=== PATIENT | female | born 1975 | race Caucasian/White ===

== ENCOUNTER 2018-08-20 08:07 | Day surgery (SDC) | payer OTHER ==
[~2018-08-20] VITALS: Ht 154.9 cm; Wt 57.1 kg
[~2018-08-20 08:07] MED LIST: ASPIR-LOW81 MG PO; FISH OIL 500 M1 EAC1 PO; NICOTINE1 EAC1 TD; NORG-EE 0.18-01 EACH PO; VITAMIN B COMP1 EAC1 PO; VITAMIN C1000 MG PO; VITAMIN D32000 UNI1 PO; WOMEN'S DAILY1 EACH PO
--- NOTE | 2018-08-20 11:54 | NUR ---
08/20/18 1154 Sheets,Leanne 1141 PT ARRIVED TO PACU ON RA, PT REACTIV ETO TACTILE STIMULI. PT STATING TO THRASH AROUND IN BED. PT REORIENTED TO PACU. PT DENIES PAIN AND IS MAONING. RESP EVEN AND UNLABORED, PT COUGHING OFF AND ON. 1150 PT RESTING IN BED, PT MORE AWAKE AND ABLE TO TALK WITH RN, PT CONINTUES TO DENY PAIN AND NAUSEA. PT RESTING IN BED, RELAXED. PT REPORT PAIN IN THRAOT, PT EDUCATION GIVEN ON INTUBATION.
--- NOTE | 2018-08-20 12:21 | NUR ---
ICED WATER AND JELLO GIVEN. CALL LIGHT W/IN REACH. FAMILY PAGED. PATIENT WILL ANSWER QUESTIONS AND FALLS QUICKLY BACK TO SLEEP WHEN LEFT UNSTIMULATED.
[2018-08-20] MEDS ORDERED: ULTRAM50 MG PO (13:20)
[2018-08-20] MEDS ORDERED: NORCO 5-325 TA1 EACH PO (13:20)
--- NOTE | 2018-08-20 14:04 | NUR ---
1320: PATIENT TOLERATED JELLO. GIVEN JAMIN CRACKERS TO EAT. GIVEN ONE TABLET OF TRAMADOL PER PATIENT REQUEST BECAUSE SHE COULD FEEL RIGHT SHOULDER STARTING TO WAKE UP. VS CHECKED. FAMILY AT BEDSIDE. CALL LIGHT WITHIN REACH.
--- NOTE | 2018-08-20 14:12 | NUR ---
1345: PATIENT TOLERATED CRACKERS. IV DC'D WNL. DISCHARGE INSTRUCTIONS GIVEN TO PATIENT. PATIENT ASSISTED OOB AND TO GET DRESSED. RIGHT ARM IN SLING. PATIENT DISCHARGED TO HOME WITH BOYFRIEND LUCIANA VIA WHEELCHAIR.
--- NOTE | 2018-08-21 14:35 | OR ---
[facility] [address] [place], [place] [address] Signed DATE OF OPERATION: 08/20/2018 SURGEON: Yobany Vela MD PREOPERATIVE DIAGNOSIS: Rotator cuff tear, right shoulder. POSTOPERATIVE DIAGNOSIS: Rotator cuff tear, right shoulder. PROCEDURE PERFORMED: Shoulder arthroscopy with debridement of partial-thickness rotator cuff tear and subacromial bursectomy. ANESTHESIA: General. SPECIMENS AND COMPLICATIONS: There were no specimens or complications. WHAT WAS DONE: The patient was taken the operating room. After anesthesia was induced and the airway secured, the patient was placed in a modified beach chair position, prepped and draped in a routine sterile fashion. The bony topography was outlined with a skin marking pen and the arthroscope was inserted through the standard posterior portal. An anterior portal was created using a switching stick technique. Diagnostic arthroscopy revealed an unremarkable glenoid and unremarkable labrum and unremarkable humeral head. The biceps and biceps anchor were unremarkable as was the subscapularis. There was a partial thickness articular sided rotator cuff tear. The VAPR electrosurgical device was introduced and used to debride the tear. After the entire tear had been debrided, there was no full-thickness component identified. We then moved the scope into the subacromial space, where there was a moderately dense bursitis. An auxiliary lateral portal was created and the VAPR was used to perform a subacromial bursectomy. Again, there was no impingement from the the AC joint. Careful inspection of the bursal side of the rotator cuff did not reveal any tearing. The subacromial space was drained and the portals were closed. Sterile dressings were applied. The patient was placed in a sling awakened, taken to the recovery room where she arrived in stable condition. Counts were correct and antibiotic protocols were followed. Electronically Signed By: YOBANY VELA MD 08/21/18 1435 PATIENT NAME: MEGHNA JIMENEZ Nusrat OPERATIVE REPORT DATE OF : 71 REPORT #: [id number] PHYSICIAN: YOBANY VELA MD PCP: JULIANA BINGHAM REPORT IS CONFIDENTIAL AND NOT TO BE RELEASED WITHOUT AUTHORIZATION [address], [place] [address] Signed Yobany Vela MD WFB/MODL /[id number] Copies: ~ Electronically Signed By: YOBANY VELA MD 08/21/18 1435 PATIENT NAME: BARBARAMEGHNA OPERATIVE REPORT DATE OF : 71 REPORT #: [id number] PHYSICIAN: YOBANY VELA MD PCP: JULIANA BINGHAM REPORT IS CONFIDENTIAL AND NOT TO BE RELEASED WITHOUT AUTHORIZATION
== END 2018-08-20 13:45 | disposition home or self-care (01) ==
LOC: OPS 08:07 → DS 08:07 → OPS 08:30 → DS 08:30 → OPS 10:30
PROVIDERS: Orthopaedic Surgery
PROC: 0RBJ4ZZ Excision of Right Shoulder Joint, Percutaneous Endoscopic Approach (ICD-10-PCS; principal; 2018-08-20 10:30)
DX: S46.011A Strain of muscle(s) and tendon(s) of the rotator cuff of right shoulder, initial encounter (principal); I48.91 Unspecified atrial fibrillation; Z88.2 Allergy status to sulfonamides; Z88.8 Allergy status to other drugs, medicaments and biological substances; Z79.82 Long term (current) use of aspirin; Z79.899 Other long term (current) drug therapy; X50.9XXA Other and unspecified overexertion or strenuous movements or postures, initial encounter; Y99.0 Civilian activity done for income or pay
CPT/HCPCS: 01630; 64415; 76942; J0690; J0735; J1885; J2250; J2405; J2704; J2795; J7120

== ENCOUNTER 2020-12-21 07:35 | Day surgery (SDC) | payer OTHER ==
[~2020-12-21] VITALS: Ht 154.9 cm; Wt 50.0 kg
[~2020-12-21 07:35] MED LIST changes: +NORCO 5-325 TA1 EACH PO; +ULTRAM50 MG PO
--- NOTE | 2020-12-21 12:23 | NUR ---
12/21/20 1223 Doris Montague 1219-PATIENT ARRIVED TO PACU ON 10L MASK RR EVEN. NONAROUSABLE. SR. IVF INFUSING. NO DRAINAGE TO TEA AREA.
--- NOTE | 2020-12-21 13:02 | NUR ---
1255: PATIENT BACK IN DAY SURGERY ROOM FROM PACU. RATES PAIN 3/10 IN LOWER ABDOMEN. VS CHECKED. IV SITE WNL. NO VAGINAL DRAINAGE. SCDs ON. PATIENT GIVEN ICE WATER AND JELLO. CALL LIGHT WITHIN REACH.
[2020-12-21] MEDS ORDERED: IBUPROFEN800 MG PO (13:13)
--- NOTE | 2020-12-21 13:57 | NUR ---
1340: PATIENT ASSISTED OOB AND TO BATHROOM BY RN. VOID WITHOUT DIFFICULTY. SMALL AMOUNT OF RED VAGINAL DRAINAGE. GAIT STEADY. 1350: PATIENT DRESSED INDEPENDENTLY. DISCHARGE INSTRUCTIONS GIVEN. IV DC'D WNL. TIP INTACT. DRESSING APPLIED. PATIENT DISCHARGED TO HOME WITH FRIEND VIA WHEELCHAIR.
--- NOTE | 2020-12-22 12:43 | PATH ---
[facility] [address] [place], [place] [address] Signed SPECIMEN(S): A ENDOMETRIAL CURETTINGS SPECIMEN SOURCE: A. ENDOMETRIAL CURETTINGS CLINICAL HISTORY: Abnormal uterine bleeding. Hysteroscopy DC. FINAL PATHOLOGIC DIAGNOSIS: Endometrium, curettage: - Disordered proliferative endometrium. - Fragments with features of benign endometrial polyp(s). - Fragments of myometrium with no histopathologic abnormality. - Negative for atypical hyperplasia or malignancy. NAL:cml:C2NR MICROSCOPIC EXAMINATION: Histologic sections of all submitted blocks are examined by light microscopy. These findings, together with the gross examination, support the pathologic diagnosis. GROSS DESCRIPTION: The specimen, labeled "LB," and designated on the requisition "EMC," is received in formalin and consists of multiple fragments of pink-peterson to hemorrhagic soft tissue (2.3 x 2.3 x 0.5 cm in aggregate). The specimen is submitted entirely in cassette (A1). AC (under the direct supervision of a pathologist) The Gross Description was prepared using a voice recognition system. The report was reviewed for accuracy; however, sound-alike word errors, addition and/or deletions may occur. If there is any question about this report, please contact Client Services. PERFORMING LABORATORY: The technical component was performed by [employer], [address] [place] [address] ([employer]: Lydia Lopez MD; CLIA# [id number]). [facility], [address] [address] (CLIA# [id number]). Diagnostician: Shea Renteria MD Pathologist PATIENT NAME: MEGHNA SAMUEL PATHOLOGY DATE OF : 71 REPORT #: [id number] PHYSICIAN: ANURAG PATHOLOGY PCP: JULIANA BINGHAM REPORT IS CONFIDENTIAL AND NOT TO BE RELEASED WITHOUT AUTHORIZATION [address] [address] Signed Electronically Signed 12/22/2020 Copies: ~ PATIENT NAME: MEGHNA SAMUEL PATHOLOGY DATE OF : 71 REPORT #: [id number] PHYSICIAN: ANURAG PATHOLOGY PCP: JULIANA BINGHAM REPORT IS CONFIDENTIAL AND NOT TO BE RELEASED WITHOUT AUTHORIZATION
--- NOTE | 2020-12-24 16:21 | OR ---
[facility] [address] [place], [place] [address] Signed DATE OF OPERATION: 12/21/2020 SURGEON: Néstor Call DO PROCEDURE: Hysteroscopy D and C. PREOPERATIVE DIAGNOSIS: Abnormal uterine bleeding POSTOPERATIVE DIAGNOSIS: Abnormal uterine bleeding Endometrial polyps Lichen Sclerosis DIRECTOR OF DEMENTIA OPERATIONS: None. ANESTHESIA: General. COMPLICATIONS: None. BLOOD LOSS: 10 mL. FINDINGS: 1. Atrophic-appearing cervix with evidence of lichen sclerosus on vulva. Mildly atrophic endometrial cavity with 2 small flat polyps, each less than 5 mm in greatest dimension. 2. Cervix tortuous, bilateral tubal ostia visualized. INDICATION: The patient is a 45-year-old female with history of abnormal uterine bleeding, who presented to my office requesting definitive surgical management/ hysterectomy for her heavy periods. Reviewed importance of confirming benign pathology of the uterus prior to proceeding with definitive surgical management. Risks, benefits, and alternatives to hysteroscopy D and C were discussed and the patient elected to proceed with procedure to be done in the OR rather than office setting. Electronically Signed By: NÉSTOR CALL DO 12/24/20 1621 PATIENT NAME: MEGHNA SAMUEL OPERATIVE REPORT DATE OF : 71 REPORT #: [id number] PHYSICIAN: NÉSTOR CALL DO PCP: JULIANA BINGHAM REPORT IS CONFIDENTIAL AND NOT TO BE RELEASED WITHOUT AUTHORIZATION [address] [place], [place] [address] Signed DESCRIPTION OF PROCEDURE: The patient was taken to the operating room where she was placed under general anesthesia and positioned in dorsal lithotomy with Yellofin stirrups. She was prepped and draped in the normal sterile fashion. Weighted speculum was placed in the vagina. Cervix was grasped at the 12 o'clock position with an Allis clamp. Cervix was easily sequentially dilated with Hegar dilators to a #7 and hysteroscope was inserted. Upon initial insertion, Allis clamp became loose and was replaced with a single-tooth tenaculum. Hysteroscope was then easily guided through the torturous cervical canal to reach the endometrial cavity, which was surveyed with findings as noted above. MyoSure Lite device was used to perform circumferential curettage of the entire cavity as well as polypectomy of the 2 small endometrial polyps. All instrumentation was removed. Tenaculum sites were inspected and noted to be hemostatic and the patient was taken to recovery in stable and satisfactory condition. Sponge and instrument counts were correct x2. Néstor Call DO EMZ/MODL /[id number] Copies: ~ Electronically Signed By: NÉSTOR CALL DO 12/24/20 1621 PATIENT NAME: MEGHNA SAMUEL OPERATIVE REPORT DATE OF : 71 REPORT #: [id number] PHYSICIAN: NÉSTOR CALL DO PCP: JULIANA BINGHAM REPORT IS CONFIDENTIAL AND NOT TO BE RELEASED WITHOUT AUTHORIZATION
== END 2020-12-21 13:50 | disposition home or self-care (01) ==
LOC: DS 07:35 → OPS 07:35 → DS 11:00 → OPS 11:00
PROVIDERS: ATTEND Obstetrics & Gynecology
PROC: 0UDB8ZX Extraction of Endometrium, Via Natural or Artificial Opening Endoscopic, Diagnostic (ICD-10-PCS; 2020-12-21)
PROC: 0UB98ZX Excision of Uterus, Via Natural or Artificial Opening Endoscopic, Diagnostic (ICD-10-PCS; principal; 2020-12-21 11:00)
DX: N84.0 Polyp of corpus uteri (principal); I48.91 Unspecified atrial fibrillation; F17.210 Nicotine dependence, cigarettes, uncomplicated; Z88.1 Allergy status to other antibiotic agents; Z88.5 Allergy status to narcotic agent; Z88.8 Allergy status to other drugs, medicaments and biological substances
CPT/HCPCS: 00952; 36415; J1100; J1885; J2250; J2405; J2704; J2765; J3010; J7121

== ENCOUNTER 2021-04-17 05:39 | Day surgery (SDC) | payer OTHER ==
--- NOTE | 2021-04-09 20:10 | EKG ---
[facility] [address] [facility] [place], [place] [address] Signed Normal sinus rhythm Normal ECG When compared with ECG of 18-DEC-2020 08:53, No significant change was found Confirmed by CHRIS MILLER DO ([id number]) on 04/09/2021 8:10:28 PM Electronically Signed By: CHRIS MILLER DO 04/09/212009 PATIENT NAME: MEGHNA SAMUEL Nusrat Electrocardiogram DATE OF : 71 PHYSICIAN: CHRIS MILLER DO REPORT #: [id number] REPORT IS CONFIDENTIAL AND NOT TO BE RELEASED WITHOUT AUTHORIZATION
[~2021-04-17] VITALS: Ht 154.9 cm; Wt 53.6 kg
[~2021-04-17 05:39] MED LIST changes: +IBUPROFEN800 MG PO
[2021-04-17] MEDS ORDERED: MELATIN3 MG PO (05:58)
--- NOTE | 2021-04-17 09:32 | NUR ---
04/17/21 0932 Sheets,Leanne 0920 PT ARRIVED TO PACU WITH TELEPHONY ENGINEER DOING JAW THRUST AND PT NONAROUSABLE TO PAINFUL STIMULI. VSS. 6L VIA MASK IN PLACE. 0928 HOB INCREASED AND PT HEAD MOVED TO SIDE AND JAW THRUST NO LONGER NEEDED TO MAINTAIN AIRWAY. RESP EVEN AND UNLABORED.
--- NOTE | 2021-04-17 09:48 | NUR ---
PT ALERT, ORIENTED AND SUPPORTED BY HER LORI. PT IS PLEASANT, SEEMS INFORMED. ALL QUESTIONS ASKED ANSWERED. EXPRESSED GREAT CONFIDENCE IN DR MARC, STAFF AND [facility]. PT REQUESTED PRAYER, WILL FOLLOW NEEDED
--- NOTE | 2021-04-17 10:42 | NUR ---
1025: PT ARRIVES TO DAY SURGERY ROOM 5 VIA STRETCHER. AWAKE AND ALERT ON ARRIVAL. COMPLAINING OF BURNING PAIN AND IRRITATION AT CATHETER SITE. DANGLED AT THE BEDSIDE, MONSERRAT WELL. DENIES DIZZINESS AND SOB. STANDS AT THE BEDSIDE AND NI CATH REMOVED. REPORTS IMRPOVING DISCOMFORT. VSS, RESP EVEN AND UNLABORED. DENIES NAUSEA. CRACKERS AND ICE WATER PROVIDED. POC DISCUSSED AND PT AGREEABLE. NO NEEDS VOICED AT THIS TIME. CALL LIGHT WITHIN REACH
--- NOTE | 2021-04-17 11:11 | NUR ---
PT WITH CALL FOR THIS RN, REPORTS URGE TO VOID. DANGLES AT THE BEDSIDE, MONSERRAT WELL. AMBULATES TO BR WITH THIS RN STANDBY ASSIST. SUCCESSFUL POSTOP VOID, 400ML. BACK TO ROOM 5, STEADY GAIT. TO CHANGE INTO OWN CLOTHES FOR COMFORT. DENIES NEEDS, CALL LIGHT WITHIN REACH
--- NOTE | 2021-04-17 11:52 | NUR ---
1130: PT DRESSED, ALERT AND AWAKE IN STRETCHER. VSS, RESP EVEN AND UNLABORED. REPORTS "READY TO GO HOME". REPORTS AT A TOLERABLE LEVEL BUT REQUESTS MOTRIN NOW SO THAT PAIN REMAINS MANAGEABLE WHILE SHE WAITS FOR HER PRESCRIPTION TO BE FILLED. RX ADMINISTERED ORDERED. SL REMOVED WITH CATH TIP INTACT AND PRESSURE APPLIED TO SITE, WNL. 1140: D/C INSTRUCTIONS PROVIDED AND DISCUSSED. PT VOICES UNDERSTANDING AND DENIES QUESTIONS AND CONCERNS AT THIS TIME. WHEELED OFF OF UNIT IN BY THIS RN. TRANSFERS INTO VEHICLE INDEPENDENTLY AND APPROPRIATELY. RESP EVEN AND UNLABORED. NO PHYSICAL S/S OF DISTRESS AT THIS TIME
--- NOTE | 2021-04-18 16:03 | PATH ---
[facility] [address] [place], [place] [address] Signed SPECIMEN(S): A UTERUS, CERVIX, BILATERAL TUBES SPECIMEN SOURCE: A. UTERUS, CERVIX, BILATERAL TUBES CLINICAL HISTORY: Irregular/heavy menses FINAL PATHOLOGIC DIAGNOSIS: Uterus, cervix, bilateral fallopian tubes, hysterectomy with bilateral salpingectomy: - Ectocervical and endocervical epithelia within normal limits. - Nabothian cysts. - Uterus with weakly proliferative endometrium and adenomyosis. - Fallopian tubes within normal limits. - Paratubal cysts. TWK:caw:C2NR MICROSCOPIC EXAMINATION: Histologic sections of all submitted blocks are examined by light microscopy. These findings, together with the gross examination, support the pathologic diagnosis. GROSS DESCRIPTION: The specimen, labeled "LB, uterus, cervix, bilateral fallopian tubes," is received in formalin and consists of uterus and cervix with and undesignated fallopian tubes. Uterus measures 4.5 x 3.5 x 6.6 cm. Serosal surface is pink-peterson, smooth. The uterus pmmaguc78 g. The ectocervix is pink-peterson, focally congested and measures 3.6 x 4.1 cm. Sectioning through the cervix reveals pink-peterson homogenous tissue. The endometrial cavity measures 2.2 x 2.0 cm. It is lined with pink-peterson, smooth endometrium. Sectioning through myometrium reveals trabeculated surface. The myometrium measures 1.7 cm in thickness. The endometrium measures 0.1 cm in thickness. Both fallopian tubes show fimbria and violaceous and smooth serosa. First fallopian tube measures 4.5 cm in length and 0.6 cm in diameter. Sectioning through the tube is grossly unremarkable. The second fallopian tube measures 3.5 cm in length and 0.6 cm in diameter. Sectioning through the fallopian tube is grossly unremarkable. Cassette summary: PATIENT NAME: MEGHNA SAMUEL PATHOLOGY DATE OF : 71 REPORT #: [id number] PHYSICIAN: ANURAG PATHOLOGY PCP: JULIANA BINGHAM REPORT IS CONFIDENTIAL AND NOT TO BE RELEASED WITHOUT AUTHORIZATION [facility] [address] [place], [place] [address] Signed (A1) cervix, hr representative sections, posterior inked (A2) endomyometrium, hr representative sections (A3) first fallopian tube, hr representative sections (A4) second fallopian tube, hr representative sections JS (under the direct supervision of a pathologist) The Gross Description was prepared using a voice recognition system. The report was reviewed for accuracy; however, sound-alike word errors, addition and/or deletions may occur. If there is any question about this report, please contact Client Services. PERFORMING LABORATORY: The technical component was performed by [employer], [address] [place] [address] (Pharmacy Services Representative: Lydia Lopez MD; CLIA# [id number]). Professional interpretation was performed by [facility], [address] [address] (CLIA# [id number]). Diagnostician: Rebel Chen MD Pathologist Electronically Signed 04/18/2021 Copies: ~ PATIENT NAME: MEGHNA SAMUEL PATHOLOGY DATE OF : 71 REPORT #: [id number] PHYSICIAN: ANURAG PATHOLOGY PCP: JULIANA BINGHAM REPORT IS CONFIDENTIAL AND NOT TO BE RELEASED WITHOUT AUTHORIZATION
--- NOTE | 2021-04-21 21:38 | OR ---
[facility] [address] [place] [address] Signed DATE OF OPERATION: 04/17/2021 SURGEON: Néstor Call DO SECURITY OPERATIONS MANAGER: STIVEN Hurtado DO PREOPERATIVE DIAGNOSES: Abnormal uterine bleeding and adenomyosis, history of recurrent vental hernia. POSTOPERATIVE DIAGNOSES: Abnormal uterine bleeding, adenomyosis, history of recurrent ventral hernia, intraabdominal adhesions. PROCEDURE PERFORMED: total laparoscopic hysterectomy and bilateral salpingectomy and cystoscopy. ANESTHESIA: General. BLOOD LOSS: 10 mL. SPECIMEN: Uterus, bilateral tubes and cervix. DRAINS: None. FINDINGS: Large omental adhesions to anterior abdominal wall at the level of the umbilicus, bilateral tubes status post bilateral tubal ligation, normal-appearing uterus and bilateral ovaries. COMPLICATIONS: None. DESCRIPTION OF PROCEDURE: The patient was given heparin and Ancef 2 g preoperatively and taken back to the Electronically Signed By: NÉSTOR CALL DO 04/21/21 2138 PATIENT NAME: MEGHNA SAMUEL OPERATIVE REPORT DATE OF : 71 REPORT #: [id number] PHYSICIAN: NÉSTOR CALL DO PCP: JULIANA BINGHAM REPORT IS CONFIDENTIAL AND NOT TO BE RELEASED WITHOUT AUTHORIZATION [facility] [address] [place] [address] Signed operating room where she was placed under general anesthesia and positioned in dorsal lithotomy position. She was prepped and draped in the normal sterile fashion. A Blanchard catheter was placed. The anterior lip of the cervix was grasped with an Allis clamp in the 12 o'clock position and the cervix was easily sequentially dilated with Hegar dilators to accommodate a medium-sized VCare manipulator. The uterus was sounded to 7 cm and a VCare manipulator was placed without difficulty. Surgeon's gloves were changed and attention was turned to the abdomen. OG tube was placed per Anesthesia and stomach was desufflated. Due to known history of recurrent midline hernias superior and inferior to midline incision, decision was made to enter at Knight's point. Local anesthetic was injected 3 cm inferior to the costal margin in the midclavicular line and an incision was made with a scalpel. Veress needle was inserted without difficulty and pneumoperitoneum was achieved with CO2 gas. The Veress needle was then removed and a 5 mm trocar was inserted. Laparoscope confirmed intraabdominal placement and absence of injury. Abdomen was surveyed with findings as noted above, and decision was made to place an additional 5 mm trocar at midline 4 cm inferior to the umbilicus below the level of the adhesion. This was placed under direct visualization after infiltration with local anesthetic and incision with a scalpel. Lateral trocars were then placed in a similar fashion with an 8 mm expanding trocar in the right lateral abdomen and 5 mm trocar in the left lateral abdomen. The patient was then positioned in Trendelenburg. Bowel was retracted for excellent visualization of the uterus. The left fimbria was grasped and elevated and ligasure device was used to cauterize and cut along the mesosalpinx to the cornea and the tube was then removed under direct visualization. The utero-ovarian ligament was cauterized and cut with LigaSure and attention was turned to the right side. The right fimbria was grasped and elevated. Mesosalpinx was cauterized and cut using Ligasure down to the level of the cornea where the tube was transected and removed under direct visualization. The right utero-ovarian ligament was cauterized and cut followed by the right round ligament. Attention was returned to the left side where the broad ligament was dissected. First the posterior leaf was dissected down to the level of the uterosacral ligaments and across at the level of the cervix with excellent visualization and palpation of the VCare cup. Then, the anterior leaf was dissected creating the bladder flap. There was excellent visualization and palpation of the VCare cup. Uterine arteries were cauterized and cut, and attention was returned to the right side. In a similar manner, the anterior leaf of the broad ligament was dissected with the LigaSure device, cauterized and cut down to the level of the bladder flap, which was further developed once in the same plane as the prior dissection on the left side. The posterior leaf was then developed down to the level of the right uterosacral ligament where it joined with the prior dissection on the left. Uterine vessels were cauterized and cut with excellent hemostasis and excellent visualization and palpation Electronically Signed By: NÉSTOR CALL DO 04/21/21 2138 PATIENT NAME: MEGHNA SAMUEL OPERATIVE REPORT DATE OF : 71 REPORT #: [id number] PHYSICIAN: NÉSTOR CALL DO PCP: JULIANA BINGHAM REPORT IS CONFIDENTIAL AND NOT TO BE RELEASED WITHOUT AUTHORIZATION [address] [address] Signed of the VCare cup. The colpotomy was performed with Sonicision device starting posteriorly and working anteriorly bilaterally. Once the colpotomy was complete, the uterus and cervix were delivered vaginally as a single unit, noted to be intact and was admitted to pathology along with bilateral tubes. Sterile packing was placed vaginally. Surgeon's gloves were changed and attention was returned to the abdomen. The vaginal cuff was closed with V-lock suture using the Endostitch device working [id number] with excellent closure and hemostasis noted. Following closure, abdomen was reinspected and excellent hemostasis was noted at all sites. Fascia at the 8 mm expanding trocar was closed using a Tre-Amarilys device with 0 Vicryl. All remaining instrumentation was removed and abdomen was desufflated. Skin was closed with 4-0 Monocryl. Blanchard catheter was removed. Cystoscope was introduced, with excellent visualization of the entire bladder. Bladder was noted to be free of injury. Bilateral ureteral efflux was noted. Vagina was inspected, tiny midline infraclitoral separation was noted, it was hemostatic and margins were well approximated, so no further closure was completed. Cuff was noted to be intact. All instrumentation was removed and patient was transported to the recovery in stable and satisfactory condition. Néstor Call DO EMZ/MODL /[id number] Copies: ~ Electronically Signed By: NÉSTOR CALL DO 04/21/21 2138 PATIENT NAME: MEGHNA SAMUEL OPERATIVE REPORT DATE OF : 71 REPORT #: [id number] PHYSICIAN: NÉSTOR CALL DO PCP: JULIANA BINGHAM REPORT IS CONFIDENTIAL AND NOT TO BE RELEASED WITHOUT AUTHORIZATION
== END 2021-04-17 11:40 | disposition home or self-care (01) ==
LOC: DS 05:39
PROVIDERS: ATTEND Obstetrics & Gynecology
PROC: 0UT94ZZ Resection of Uterus, Percutaneous Endoscopic Approach (ICD-10-PCS; principal; 2021-04-17 06:45)
PROC: 0UT74ZZ Resection of Bilateral Fallopian Tubes, Percutaneous Endoscopic Approach (ICD-10-PCS; 2021-04-17 06:45)
DX: N88.8 Other specified noninflammatory disorders of cervix uteri (principal); N83.8 Other noninflammatory disorders of ovary, fallopian tube and broad ligament; N93.9 Abnormal uterine and vaginal bleeding, unspecified; N80.0 Endometriosis of uterus; K43.2 Incisional hernia without obstruction or gangrene; Z87.891 Personal history of nicotine dependence; Z98.51 Tubal ligation status; Z86.79 Personal history of other diseases of the circulatory system
CPT/HCPCS: 00840; 84703; 85027; 93005; 93010; A9270; J0330; J0690; J1100; J1644; J1885; J2250; J2405; J2704; J2765; J3010; J7121